=== PATIENT | female | born 1980 | race Caucasian/White ===

== ENCOUNTER 2016-11-15 13:54 | Emergency (ER) | payer OTHER ==
[~2016-11-15] VITALS: Ht 170.2 cm; Wt 55.8 kg
[~2016-11-15 13:54] MED LIST: ABILIFY10 MG PO; COLACE100 MG PO; ENDOCET 5-3251 EACH PO; FEOSOL325 MG PO; LAMICTAL ODT25 MG PO; METHADONE10 MG PO; MOTRIN800 MG PO; MULTIPLE VITAM1 EACH PO; NAPROSYN500 MG PO; NATALCARE RX1 TABLE1 PO; NEURONTIN100 MG PO; NORCO 7.5/321 TABLET PO; PAROXETINE HCL10 MG; SUBOXONE 8 MG-1 EAC2 SL; SUBUTEX8 MG PO; TEGRETOL100 MG PO; VITAMIN B CO1 TABLET PO; WELLBUTRIN XL300 MG PO
[2016-11-15] MEDS ORDERED: KEFLEX500 MG PO (14:19)
[2016-11-15] MEDS ORDERED: BACTRIM,SEPT1 TABLET PO (14:19)
[2016-11-15 14:48] VITALS: BP 103/42
== END 2016-11-15 14:50 | disposition home or self-care (01) ==
LOC: RME 13:54 → EME 13:54 → RME 14:50
PROC: 0H9LXZZ Drainage of Left Lower Leg Skin, External Approach (ICD-10-PCS; principal; 2016-11-15)
DX: L02.416 Cutaneous abscess of left lower limb (principal); F17.200 Nicotine dependence, unspecified, uncomplicated
CPT/HCPCS: 99281; 99285

== ENCOUNTER 2017-10-29 10:43 | Emergency (ER) | payer OTHER ==
[~2017-10-29 10:43] MED LIST changes: +BACTRIM,SEPT1 TABLET PO; +KEFLEX500 MG PO
== END 2017-10-29 16:25 ==
LOC: EME 10:43
DX: I46.9 Cardiac arrest, cause unspecified (principal); G89.29 Other chronic pain; F32.9 Major depressive disorder, single episode, unspecified; F17.200 Nicotine dependence, unspecified, uncomplicated
CPT/HCPCS: 99281; 99285